=== PATIENT | female | born 1990 | race Caucasian/White ===

== ENCOUNTER 2019-02-07 01:14 | Inpatient (IN) | payer OTHER ==
[2019-02-07] VITALS (15 sets, daily range): BP systolic 105–128; BP diastolic 54–71; PULSE 72–105; RESP 11–18; Ht 162.6 cm; Wt 54.9 kg
[~2019-02-07] VITALS: Ht 162.6 cm; Wt 54.9 kg
[~2019-02-07 01:14] MED LIST: ACYC400T2 PO; ALPR0.5T PO; DEXT15LI31 PO; IBUP-1542 PO; PREN-39 PO; VALA100057 PO; [UNRECOGNIZED DRUG - OTHER]
[2019-02-07] MEDS ORDERED: morphine 4 MG/ML VIAL IV STA (02:14)
[2019-02-07] MEDS ORDERED: ONDANSETRON 4 MG INJ IV STA (02:14)
[2019-02-07] MEDS ORDERED: SOD CHLORIDE 0.9% 1,000 ML IV STA (02:14)
[2019-02-07] MEDS ORDERED: ONDANSETRON 4 MG INJ IV ONE (04:21)
[2019-02-07] MEDS ORDERED: morphine 4 MG/ML VIAL IV ONE (04:21)
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
[2019-02-07] MEDS ORDERED: ONDANSETRON 4 MG INJ IV PRN ×2 (06:00→11:30)
[2019-02-07] MEDS ORDERED: ACETAMINOPHEN 325 MG TAB PO PRN (06:00)
--- NOTE | 2019-02-07 06:01 | HP ---
Date/Time of Note Date/Time of Note DATE: 02/07/19 TIME: 05:49 Assessment/Plan VTE Prophylaxis SCD applied (from Ns): No SCD contraindicated: low risk/ambulating Pharmacological prophylaxis: NA/contraindicated Pharm contraindication: low risk/ambulating VTE Confirmed-Overlap Tx Rcvd Pt Rcvd Overlap Therapy: No Reason for no Overlap Therapy: Contraindicated Lines/Catheters [facility]from [facility] [place] [employer] Central line still needed: No Urinary Cath still in place: No Assessment/Plan Problems: (1) Mass of uterus determined by ultrasound Status: Acute (2) Leukocytosis Status: Acute Qualifiers: Leukocytosis type: unspecified Qualified Codes: D72.829 - Elevated white blood cell count, unspecified (3) Pelvic pain Status: Acute (4) Normocytic anemia (5) Excessive vaginal bleeding Status: Acute Assessment/Plan Significant vaginal bleeding Complex heterogeneous structure inside the uterine cavity hypervascular, cannot rule out retained products of conception. Ultrasound impression GTN cannot be ruled out. Discussed with the patient regarding possibility of retained products of conception versus GTN. Commended to proceed with suction dilatation and curettage. Risk and benefit of procedure including risk of infection, bleeding, damage to surrounding structures including bowel and bladder and risk of uterine perforation as well as risk of additional surgical procedure and risk of blood transfusion including but not limited to blood borne infection including HIV, hepatitis B and C and transfusion reaction discussed with patient in detail and informed consent was obtained. Patient verbalized understanding all above risks and desires to proceed. I discussed with the patient the final diagnosis will be after pathology results however based on her current clinical picture cannot rule out retained POC. GTN is very unlikely due to negative hCG. Other intrauterine pathologies and malignancies cannot be ruled out however these possibilit at the current patient ageies and risk factors are very limited. I discussed with patient that she needs to proceed with complete CREDIT ASSISTANT evaluation after D&C and after specifically discharge from the hospital with her own CREDIT ASSISTANT after final pathology results. Uterine tenderness noted on exam. Cannot rule out endometritis. Will start IV antibiotics. Patient is afebrile. All questions were answered to patient's best satisfaction and patient verbalized understanding Patient will be booked for the OR Result Diagram: 02/07/191 02/07/19 0221 Results 24hrs Laboratory Tests Test 02/07/19 02:21 White Blood Count 13.2 #H Red Blood Count 3.59 #L Hemoglobin 11.5 #L Hematocrit 34.0 L Mean Corpuscular Volume 94.7 Mean Corpuscular Hemoglobin 32.0 Mean Corpuscular Hemoglobin Concent 33.8 Red Cell Distribution Width 11.8 Platelet Count 172 Mean Platelet Volume 10.8 #H Immature Granulocytes % 0.400 Neutrophils % 69.0 Lymphocytes % 21.2 Monocytes % 8.6 Eosinophils % 0.5 Basophils % 0.3 Nucleated Red Blood Cells % 0.0 Immature Granulocytes # 0.050 H Neutrophils # 9.1 H Lymphocytes # 2.8 Monocytes # 1.1 H Eosinophils # 0.1 Basophils # 0.0 Nucleated Red Blood Cells # 0.0 Sodium Level 139 Potassium Level 4.0 Chloride Level 106 Carbon Dioxide Level 20 L Anion Gap 13 Blood Urea Nitrogen 14 Creatinine 0.69 Est Glomerular Filtrat Rate mL/min > 60 Glucose Level 92 Calcium Level 9.0 Serum HCG, Qualitative NEGATIVE HPI/ROS Admit Date/Time Admit Date/Time February 07, 2019 Hx of Present Illness 28-year-old G3, P1 female presented to emergency room with complaint of significant heavy vaginal bleeding after she started having sexual intercourse with her boyfriend last night. Patient reports a recent history of medical about a month ago. She received oral pills for . She was 9 weeks in the last . Reports had been seen in the same clinic after she used oral pills for termination and had an ultrasound and was confirmed complete expulsion of products of conception. She subsequently started on patch for contraception. Patient reports her last menstrual period January 20, 2019 that per patient was a light regular. Last about 4 days. She did not have any vaginal bleeding until last night when she started having sexual intercourse with her boyfriend. Reports had significant vaginal bleeding after introduction of boyfriends finger into the vagina without having full sexual intercourse. Patient serum hCG negative. Ultrasound showed evidence of heterogeneous hypervascular communications manager inside the uterine cavity concerning for possible GTN. Patient currently denies any dizziness, lightheadedness, shortness of breath or chest pain. ROS Subjective hx not possible: other (Alert and oriented and historical) Constitutional: chills; No no complaints, No improved, No diaphoresis, No disoriented, No fatigue, No febrile, No nausea, No poor po, No weight change, No other Eyes: No no complaints, No pain, No discharge, No redness, No visual change, No other ENT: No no complaints, No bleeding, No pain, No congestion, No discharge, No dysphagia, No sore throat, No other Respiratory: No no complaints, No pain, No cough, No pleuritic pain, No shortness of breath, No sputum, No wheezing, No other Cardiovascular: No no complaints, No chest pain, No edema, No lightheadedness, No orthopenea, No palpitations, No paroxysmal nocturnal dyspnea, No other Gastrointestinal: No no complaints, No pain, No blood, No constipation, No decreased appetite, No diarrhea, No flatus, No nausea, No passing stool, No vomiting, No other Genitourinary: bleeding; No no complaints, No dysuria, No discharge, No flank pain, No hematuria, No other Musculoskeletal: No no complaints, No back pain, No bone/joint pain, No neck pain, No restricted range of motion, No swelling, No other Skin: No no complaints, No bruising, No erythema, No laceration, No pruritis, No rash, No skin lesions, No other Neurologic: No no complaints, No confusion, No dizziness, No focal-weakness, No headache, No syncope, No seizure, No other Endocrine: No no complaints, No polyuria, No polydypsia, No dry skin, No temp intolerance, No weight change, No other Lymphatic: No no complaints, No adenopathy, No tender nodes, No lymphadema, No other Psychological: No no complaints, No nl mood/affect, No anxiety, No confusion, No depression, No suicidal, No other Immunologic: No no complaints, No immunodeficiency, No pruritis, No rhinitis, No urticaria, No other PMH/Family/Social Past Medical History Medical History: no pertinent history Medications Current Medications Ondansetron HCl (Zofran Inj) 4 mg BRIDGE ORDER PRN IV NAUSEA/VOMITING; Start 02/07/19 at 06:00; Stop 02/08/19 at 05:59 Acetaminophen (Tylenol Tab) 650 mg ER BRIDGE PRN PO .MILD PAIN 1-3 OR TEMP; Start 02/07/19 at 06:00; Stop 02/08/19 at 05:59 Coded Allergies: peanut (Verified Allergy, Unknown, 02/07/19) Past Surgical History Past Surgical Hx: no surgical history Family History Significant Family History: other (Reports family history of gallbladder stone and kidney stone in her mother otherwise no other medical problems in the family) Social History Smoking Status: Current every day smoker Drug Use: none Exam/Review of Systems Vital Signs Vitals Vital Signs Date Temp Pulse Resp B/P (MAP) Pulse Ox O2 O2 Flow FiO2 Time Delivery Rate 02/07/19 84 15 119/63 99 Room Air 04:52 (81) 02/07/19 97.9 01:17 Exam Constitutional: alert, oriented, well developed Psych: no complaints, nl mood/affect Head: normocephalic, atraumatic Eyes: nl conjunctiva, EOMI, nl lids ENMT: nl external ears & nose, nl lips & teeth Neck: supple, non-tender Respiratory: clear to auscultation, normal air movement Cardiovascular: regular rate and rhythm, nl pulses Gastrointestinal: soft, nl liver, spleen, tender (Moderate tenderness noted in palpation of the lower abdomen including right and left and mid lower abdomen no rebound tenderness, no guarding, no rigidity no evidence of acute abdomen) Genitourinary - Male: No nl penis, No nl scrotum, No CVA tenderness, No discharge, No other Genitourinary - Female: other (Status post on examination: Cervix appears normal looking. Currently scant amount of blood in the pot. Significant tenderness noted in palpation of the cervix using cotton swab. No abnormal vaginal discharge. Bimanual examination: There is tenderness in palpation of the uterus as well as lower abdomen. Patient has difficulty tolerating the exam. Exam is limited. Uterus appears normal size.) Extremities: normal pulses NARCISO PAINTING MD Feb 07, 2019 06:00
[2019-02-07] MEDS ORDERED: DOXYCYCLINE 100 MG in SOD CHLORIDE 0.9% 250 ML IVPB ONE (08:00)
[2019-02-07] MEDS: LACTATED RINGER'S 1,000 ML IV SCH ×3 (08:02→23:18)
--- NOTE | 2019-02-07 11:08 | PREAC ---
Date/Time of Note Date/Time of Note DATE: 02/07/19 TIME: 11:07 Anesthesia Eval and Record Evaluation Time Pre-Procedure Interview DATE: 02/07/19 TIME: 11:07 Age 28 Sex female NPO: 8 hrs Preoperative diagnosis Vaginal Bleeding Planned procedure D&C Past Medical History Past Medical History: Includes Heme: Anemia : : (3), Para: (1), Gestational age: Surgery & Anesthesia Issues No known issue Meds Anticoagulation: No Beta Teresa within 24 hr: No Reason Beta Teresa not given: Pt. not on B-Teresa Active Scripts Ibuprofen* (Motrin*) 600 Mg Tab, 600 MG PO Q6, #30 TAB Prov:MADISYN HOUGH PA-C 02/25/16 Reported Medications Acyclovir* (Acyclovir*) 400 Mg Tablet, 400 MG PO DAILY, TAB 04/14/14 Valacyclovir Hcl* (Valtrex*) 1,000 Mg Tablet, 1000 MG PO DAILY, TAB 04/14/14 Alprazolam* (Xanax*) 0.5 Mg Tab, 0.5 MG PO BID, TAB 04/14/14 [Cough Drops Prn] No Conflict Check 09/22/12 Dextromethorphan Hbr (Tussin) 15 Mg/5 Ml Liquid, PO PRN 09/22/12 Vits W-Ca,Fe,Fa(<1MG) ( Vitamins) 1 Tab Tablet, PO DAILY 09/22/12 Current Medications Ondansetron HCl (Zofran Inj) 4 mg BRIDGE ORDER PRN IV NAUSEA/VOMITING; Start 02/07/19 at 06:00; Stop 02/08/19 at 05:59 Acetaminophen (Tylenol Tab) 650 mg ER BRIDGE PRN PO .MILD PAIN 1-3 OR TEMP; Start 02/07/19 at 06:00; Stop 02/08/19 at 05:59 Lactated Ringer's 1,000 ml @ 125 mls/hr Q8H IV Last administered on 02/07/19at 10:31; Admin Dose 125 MLS/HR; Start 02/07/19 at 06:53 Meds reviewed: Yes Allergies Coded Allergies: peanut (Verified Allergy, Unknown, 02/07/19) Allergies Reviewed: Yes Labs/Studies Labs Reviewed: Reviewed by anesthesiologist Result Diagram: 02/07/1922002/07/19220 Laboratory Tests 02/07/19 02:21 Blood Bank Test 02/07/19 02:36 Antibody Screen NEGATIVE Blood Type O POSITIVE test: Positive Pre-procedure Exam Last vitals Vital Signs Date Temp Pulse Resp B/P (MAP) Pulse Ox O2 O2 Flow FiO2 Time Delivery Rate 02/07/19 98.1 72 18 106/66 100 Room Air 09:00 (79) Airway: Adequate mouth opening, Adequate thyromental dist Mallampati: Mallampati II Teeth: Normal Lung: Normal Heart: Normal ASA Physical Status ASA physical status: 2 Emergency: E Planned Anesthetic General/MAC: LMA Planned Pain Management Parenteral pain med Pre-operative Attestations Prior to commencing anesthesia and surgery, the patient was re-evaluated, there was verification of: *The patient's identity *The results of appropriate recent lab work and preoperative vital signs *The above evaluation not changing prior to induction *Anesthetic plan, risk benefits, alternative and complications discussed with patient/family; questions answered; patient/family understands, accepts and wishes to proceed. BENJAMÍN BEVERLY MD Feb 07, 2019 11:08
[2019-02-07] MEDS ORDERED: MIDAZOLAM 1 MG/ML 2 ML INJ ONE (11:29)
[2019-02-07] MEDS ORDERED: CEFAZOLIN 1 GM INJ ONE (11:29)
[2019-02-07] MEDS ORDERED: PROPOFOL 20 ML ONE (11:29)
[2019-02-07] MEDS ORDERED: EPHEDrine 25 MG/5 ML SYG ONE (11:29)
[2019-02-07] MEDS ORDERED: FENTAnyl 50 MCG/ML VIAL ONE (11:29)
[2019-02-07] MEDS ORDERED: OXYCODONE/ACETAMINOPHEN (5/325) TAB PO PRN (11:30)
[2019-02-07] MEDS ORDERED: FENTAnyl 50 MCG/ML VIAL IV PRN ×2 (11:30)
[2019-02-07] MEDS ORDERED: LABETALOL HCL 20MG INJ IV PRN (11:30)
[2019-02-07] MEDS ORDERED: HYDROmorphONE 1 MG/5 ML IV SYRINGE IV PRN ×2 (11:30)
[2019-02-07] MEDS ORDERED: METOCLOPRAMIDE 10 MG INJ IV PRN (11:30)
[2019-02-07] MEDS ORDERED: KETOROLAC 30 MG INJ IV PRN (11:30)
[2019-02-07] MEDS ORDERED: EPHEDrine 25 MG/5 ML SYG IV PRN (11:30)
[2019-02-07] MEDS ORDERED: OXYTOCIN 10 UNIT INJ ONE (11:44)
[2019-02-07] MEDS ORDERED: DEXAMETHASONE 4 MG/ML 5 ML INJ ONE (11:45)
[2019-02-07] MEDS ORDERED: KETOROLAC 30 MG INJ ONE (11:45)
[2019-02-07] MEDS ORDERED: METOCLOPRAMIDE 10 MG INJ ONE (11:45)
[2019-02-07] MEDS ORDERED: ONDANSETRON 4 MG INJ ONE (11:45)
--- NOTE | 2019-02-07 12:06 | PAC ---
Date/Time of Note Date/Time of Note DATE: 02/07/19 TIME: 12:06 Post-Anesthesia Notes Post-Anesthesia Note Last documented vital signs Vital Signs Date Temp Pulse Resp B/P (MAP) Pulse Ox O2 O2 Flow FiO2 Time Delivery Rate 02/07/19 98.1 72 18 106/66 100 Room Air 12:00 (79) Activity: WNL Respiratory function: WNL Cardiovascular function: WNL Mental status: Baseline Pain reasonably controlled: Yes Hydration appropriate: Yes Nausea/Vomiting absent: Yes BENJAMÍN BEVERLY MD Feb 07, 2019 12:06
--- NOTE | 2019-02-07 14:12 | OPR ---
Operative Report Planned Procedure Free Text/Dictation 02/07/2019 Procedure date Feb 07, 2019 Procedure(s) Dilatation and currettage Performed by see signature line Route Driver: A Anesthesiologist: BENJAMÍN BEVERLY MD Pre-procedure diagnosis Significant vaginal bleeding after medical termination with ultrasound finding of heterogeneous intrauterine structures with vascularity questionable for GTN, possible retained products of conception? [id number] Anesthesia Type: [id number] MAC Post-Procedure Post-procedure diagnosis Possible retained POC Uterine cavity irregularity noted in the anterior uterine wall in the lower uterine segment questionable for possible submucosal fibroid? Findings Live Baby [], Apgars [] and [], weight [], position [], [] presentation []cord. Estimated Blood Loss: 100 - 200 mls Specimen(s) Possible Retained POC Grafts/Implant(s) None Complication(s) none Pt Condition post procedure: stable Disposition: PACU Procedure Description 28 years old female with new episode of recent , underwent Medical termination about one month ago and presented with complaint of postcoital significant vaginal bleeding last night. Patient had a pelvic ultrasound that showed evidence of heterogeneous material inside the uterine cavity questionable for gestational trophoblastic neoplasm. Patient's hCG is negative. She also was noted to have tenderness to palpation of the fundus of the uterus and cervix questionable for endometritis She was candidate for dilatation and curettage, biopsy of intrauterine cavity contents. Risk and benefit of procedure including risk of infection bleeding, damage to surrounding structures including bowel and bladder and risk of uterine perforation and damage to adjacent structures discussed with the patient. Risk of blood transfusion including but not limited to blood borne infection including HIV, hepatitis B and C and transfusion reaction discussed with patient. Patient verbalized understanding. Consent was signed. She was then taken to the OR. She has received a dose of Ancef prior to induction of anesthesia. She was then placed in dorsal lithotomy position. Exam under anesthesia performed. Uterus was noted to be normal size. After prepped and draped under sterile fashion first a weighted speculum placed inside the vagina. Anterior lip of the cervix was grasped using tenaculum. Then uterine depth was measured using uterine sound was noted to be about 12 cm. Then using Hegar dilator the cervix was serially dilated until it comfortably accommodated Hegar dilator #7. Then a flexible vacuum curettes #9 was easily passed through the cervix into the uterine cavity and suction device was activated. The intrauterine cavity and 360 degrees was suctioned. Mainly blood with scant amount of tissue obtained there was then the uterine cavity and 360 degrees was curette. There was an area of irregularity and indentation toward the uterine cavity and the anterior uterine wall and in the lower uterine segment. Otherwise the rest of the cavity at the end appear to be clean and gritty sensation was noted. Then after reassurance about the completeness of the procedure the suction Vacurette was removed as well as the instrument from anterior lip of the cervix. There is no bleeding from the anterior lip of the cervix and the tenaculum site. Fundus was firm. Hemostasis was complete. Patient tolerated procedure well. Instrument removed from vagina. Specimen from uterine cavity was sent to pathology. Patient tolerated procedure well. Sponge, needle counts were correct x2. Patient was then transferred to recovery room in stable condition. NARCISO PAINTING MD Feb 07, 2019 14:11
[2019-02-07] MEDS: HYDROCODONE/APAP (5/325) TAB PO PRN ×3 (15:02→21:07)
[2019-02-07] MEDS: CLINDAMYCIN 900 MG/D5W (PMX) 50 ML IVPB SCH ×2 (15:25→21:04)
[2019-02-07] MEDS: GENTAMICIN 80 MG/NS (PMX) 50 ML IVPB SCH ×2 (16:44→23:20)
[2019-02-08 02:05] VITALS: BP 128/67; PULSE 115; RESP 18
[2019-02-08] MEDS: HYDROCODONE/APAP (5/325) TAB PO PRN ×5 (02:10→22:54)
[2019-02-08 03:00] VITALS: PULSE 98
[2019-02-08] MEDS: CLINDAMYCIN 900 MG/D5W (PMX) 50 ML IVPB SCH ×3 (05:17→21:35)
[2019-02-08] MEDS: LACTATED RINGER'S 1,000 ML IV SCH ×3 (06:53→21:35)
[2019-02-08] MEDS: GENTAMICIN 80 MG/NS (PMX) 50 ML IVPB SCH ×3 (07:05→22:54)
[2019-02-08 08:55] VITALS: BP 124/79; PULSE 103; RESP 18
[2019-02-08 14:00] VITALS: BP 117/63; PULSE 101; RESP 16
[2019-02-08] MEDS ORDERED: HYDROmorphONE 1 MG/ML SYG IV ONE (14:30)
[2019-02-08] MEDS ORDERED: ONDANSETRON 4 MG INJ IV PRN (17:30)
[2019-02-08 20:05] VITALS: BP 125/80; PULSE 105; RESP 18
[2019-02-09 02:20] VITALS: BP 112/60; PULSE 100; RESP 18
--- NOTE | 2019-02-09 03:51 | QN ---
Documentation Comment late entry for service rendered at 02/08/19 earlier in the afternoon called for postop pain which is not relieved norco reviwed note showed she underwent D&C for vaginal bleeding 2 to medical one dose of Dilaudid 1mg given Vss afebile u/s ordered. non specific pathologic report was compatible with chorionic villi A s/p D&C postop pain P reevaluate this am poss oischarge after CBC MANUEL ORONA MD Feb 09, 2019 03:50
[2019-02-09] MEDS: HYDROCODONE/APAP (5/325) TAB PO PRN ×2 (04:07→08:48)
[2019-02-09] MEDS: CLINDAMYCIN 900 MG/D5W (PMX) 50 ML IVPB SCH (05:33)
[2019-02-09] MEDS: LACTATED RINGER'S 1,000 ML IV SCH (06:53)
[2019-02-09] MEDS: GENTAMICIN 80 MG/NS (PMX) 50 ML IVPB SCH (07:28)
[2019-02-09 08:12] VITALS: BP 104/73; PULSE 92; RESP 16
--- NOTE | 2019-02-09 09:09 | DS ---
Date/Time of Note Date/Time of Note DATE: 02/09/19 TIME: 09:07 Discharge Summary Admission/Discharge Info Admit Date/Time Feb 07, 2019 at 05:32 Discharge Date/Time February 09, 2019 Discharge Diagnosis Status post D&C on February 07, [address] Pelaez medical in December 2018 Patient Condition: Good Consults Gynecology Procedures Status post D&C on February 07, [address] Pelaez Hx of Present Illness VS - Last 72 Hours, by Label Date Temp Pulse Resp B/P (MAP) Pulse Ox O2 O2 Flow FiO2 Time Delivery Rate 02/09/19 98.6 92 16 104/73 99 Room Air 08:12 (83) 02/09/19 98.2 100 18 112/60 98 02:20 (77) 02/08/19 97.9 105 18 125/80 97 20:05 (95) 02/08/19 98.2 101 16 117/63 98 14:00 (81) 02/08/19 98.2 103 18 124/79 98 08:55 (94) 02/08/19 98 03:00 02/08/19 98.4 115 18 128/67 98 02:05 (87) 02/07/19 97.6 105 18 128/70 98 20:05 (89) 02/07/19 98.3 96 17 105/65 97 Room Air 14:00 (78) 02/07/19 98.2 92 15 105/54 100 Room Air 12:59 (71) 02/07/19 96 18 113/71 100 Room Air 12:54 (85) 02/07/19 84 17 109/56 100 Room Air 12:49 (73) 02/07/19 86 16 107/55 100 Room Air 12:44 (72) 02/07/19 88 11 110/55 100 Room Air 12:39 (73) 02/07/19 86 15 112/62 100 Room Air 12:34 (79) 02/07/19 90 11 110/55 100 Room Air 12:29 (73) 02/07/19 98.0 12:26 02/07/19 90 13 114/58 100 Room Air 12:24 (76) 02/07/19 92 11 115/59 100 Room Air 12:19 (77) 02/07/19 94 12 113/60 100 Nasal 2.0 12:14 (77) Cannula 02/07/19 98 12 116/54 100 Nasal 4.0 12:09 (74) Cannula 02/07/19 Simple 8.0 12:04 Mask 02/07/19 98.0 98 16 120/65 100 Mask 8.0 12:04 (83) 02/07/19 98.1 72 18 106/66 100 Room Air 09:00 (79) 02/07/19 98.1 84 18 106/52 99 Room Air 08:35 (70) 02/07/19 83 18 109/63 99 Room Air 06:33 (78) 02/07/19 84 15 119/63 99 Room Air 04:52 (81) 02/07/19 97.9 103 22 106/62 99 01:17 (77) Hematology - 72 Hrs Test 02/07/19 02:21 02/09/19 05:51 Hematocrit 34.0 % (37.0-47.0) L 25.0 % (37.0-47.0) #L Hemoglobin 11.5 g/dl (12.0-16.0) #L 8.2 g/dl (12.0-16.0) #L Mean Corpuscular 32.0 pg (29.0-33.0) 31.7 pg (29.0-33.0) Hemoglobin Mean Corpuscular 33.8 g/dl (32.0-37.0) 32.8 g/dl (32.0-37.0) Hemoglobin Concent Mean Corpuscular Volume 94.7 fl (82.0-101.0) 96.5 fl (82.0-101.0) Mean Platelet Volume 10.8 fl (7.4-10.4) #H 11.5 fl (7.4-10.4) H Platelet Count 172 10^3/UL (140-415) 138 10^3/UL (140-415) L Red Blood Count 3.59 10^6/ul (4.20-5.40) 2.59 10^6/ul (4.20-5.40) #L #L Red Cell Distribution 11.8 % (11.5-14.5) 12.4 % (11.5-14.5) Width White Blood Count 13.2 10^3/ul (4.8-10.8) 7.0 10^3/ul (4.8-10.8) # #H Chemistry Test 02/07/19 02:21 Sodium Level 139 mmol/L (135-144) Potassium Level 4.0 mmol/L (3.5-5.1) Chloride Level 106 mmol/L (97-110) Carbon Dioxide Level 20 mmol/L (21-31) L Anion Gap 13 (5-13) Blood Urea Nitrogen 14 mg/dl (7-20) Creatinine 0.69 mg/dl (0.44-1.00) Est Glomerular Filtrat Rate mL/min > 60 mL/min (>60) Glucose Level 92 mg/dl (70-220) Calcium Level 9.0 mg/dl (8.4-10.2) Serum HCG, Qualitative NEGATIVE (NEGATIVE) Lab No: [id number] Date: 02/07/2019 SPECIMEN: Uterine contents CLINICAL: Vaginal bleeding GROSS EXAMINATION: Received in formalin are segments of pink and dark red, clotted blood that weigh 20.0 grams and measure 3.5 x 3.5 x 2.2 cm in aggregate. The tissue fragments are representatively sampled in four cassettes (60% of the specimen is embedded). MICROSCOPIC DIAGNOSIS: Uterine contents: -- Chorionic villi, fragments of decidua and endometrium, fresh hemorrhage and necrotic tissue. -- No evidence of malignancy. // Date of Service: 02/07/19; Date Received: 02/07/19 Dictated: 02/08/19; Transcribed: 02/08/19; Sent by Fax: 02/08/19 Shae Bhatt M.D. Pathologist Electronically Signed 02/08/2019 WILL VARELA M.D. PATIENT: MALACHI ROPER FREEMAN ZAMORA M.D. AGE/SEX/: 28/F 1990 [facility] MR NO: [id number] VISIT: [id number] ROOM NO: [id number] PHYSICIAN: Christ PELAEZ, NARCISO TISSUE EXAMINATION REPORT ANATOMIC AND CLINICAL PATHOLOGY CONSULTATION GROSS EXAMINATION PERFORMED BY: [facility] - [address] [place] [address], [address] - [place] ; Hospital Course Patient admitted on February 07, 2019 with heavy vaginal bleeding She reports of having medical in December 2018 Patient underwent D&C on February 07 for heavy vaginal bleeding by Dr. Mariano Beta-hCG on admission negative Pathology report consistent with chorionic villi, no evidence of malignancy Postoperatively patient remained stable and afebrile Postop pain well controlled with pain meds Patient reports of having minimal vaginal bleeding at this time She was given prescription for Motrin and doxycycline to be taken for 1 week Pelvic rest instructions were given for 6 weeks She was instructed to follow-up with [facility] in 1 week Home Meds Active Scripts Ibuprofen* (Motrin*) 600 Mg Tab, 600 MG PO Q6, #30 TAB Prov:MADISYN HOUGH PA-C 02/25/16 Reported Medications Acyclovir* (Acyclovir*) 400 Mg Tablet, 400 MG PO DAILY, TAB 04/14/14 Valacyclovir Hcl* (Valtrex*) 1,000 Mg Tablet, 1000 MG PO DAILY, TAB 04/14/14 Alprazolam* (Xanax*) 0.5 Mg Tab, 0.5 MG PO BID, TAB 04/14/14 [Cough Drops Prn] No Conflict Check 09/22/12 Dextromethorphan Hbr (Tussin) 15 Mg/5 Ml Liquid, PO PRN 09/22/12 Vits W-Ca,Fe,Fa(<1MG) ( Vitamins) 1 Tab Tablet, PO DAILY 09/22/12 Follow-up Plan Patient was given prescription for Motrin 800 mg p.o. every 8 hours as needed for pain and doxycycline 100 mg p.o. twice daily for 7 days Pelvic rest instructions were given X 6 weeks Patient was instructed to follow-up with [facility] in 1 week Primary Care Provider Iraida Wild MD Time spent on discharge: > 30 minutes Pending Labs Laboratory Tests Test 02/08/19 21:51 02/09/19 00:15 02/09/19 05:51 Gentamicin Level 1.0 ug/ml (1.0-2.0) Trough Gentamicin Level 5.3 Peak ug/ml (5.0-10.0) White Blood Count 7.0 10^3/ul (4.8-10.8) Red Blood Count 2.59 10^6/ul (4.20-5.40 ) Hemoglobin 8.2 g/dl (12.0-16.0) Hematocrit 25.0 % (37.0-47.0) Mean Corpuscular 96.5 Volume fl (82.0-101.0) Mean Corpuscular 31.7 Hemoglobin pg (29.0-33.0) Mean Corpuscular 32.8 Hemoglobin Concent g/dl (32.0-37.0) Red Cell 12.4 % (11.5-14.5) Distribution Width Platelet Count 138 10^3/UL (140-415) Mean Platelet 11.5 fl (7.4-10.4) Volume Immature 0.400 Granulocytes % % (0.001-0.429) Neutrophils % 36.5 % (39.0-77.0) Lymphocytes % 52.4 % (15.0-51.0) Monocytes % 9.4 % (0.0-11.0) Eosinophils % 0.9 % (0.0-7.0) Basophils % 0.4 % (0.0-2.0) Nucleated Red Blood 0.0 Cells % /100WBC (0.0-0.0) Immature 0.030 Granulocytes # 10^3/ul (0.0-0.031 ) Neutrophils # 2.6 10^3/ul (1.6-7.5) Lymphocytes # 3.7 10^3/ul (0.8-2.9) Monocytes # 0.7 10^3/ul (0.3-0.9) Eosinophils # 0.1 10^3/ul (0.0-0.5) Basophils # 0.0 10^3/ul (0.0-0.1) Nucleated Red Blood 0.0 Cells # 10^3/ul (0.0-0.0) JOB VASQUEZ MD Feb 09, 2019 09:09
== END 2019-02-09 11:45 | disposition home or self-care (01) | DRG 770 ==
LOC: FTE 01:14 → PP2 05:32 → EDBEDREQSVC 05:47 → EDBEDREQ 05:47
PROVIDERS: ADMIT Obstetrics & Gynecology Obstetrics; ATTEND Obstetrics & Gynecology Obstetrics
PROC: 10D17ZZ Extraction of Products of Conception, Retained, Via Natural or Artificial Opening (ICD-10-PCS; principal; 2019-02-07 10:30)
DX: O03.4 Incomplete spontaneous abortion without complication (principal); Z72.0 Tobacco use
CPT/HCPCS: 36415; 76856; 80048; 80170; 84703; 85025; 86850; 86900; 86901; 88305; 96374; 96375; 96376; J0690; J1100; J1170; J1580; J1885; J2250; J2270; J2405; J2590; J2765; J3010; J7030; J7050; J7120